=== PATIENT | female | born 1960 | race Caucasian/White ===

== ENCOUNTER 2017-03-22 14:28 | Outpatient (CLI) | payer BC ==
--- NOTE | 2017-03-22 15:27 | RAD ---
PA AND LATERAL CHEST: Indication: Granulomatous disorder. Comparison: 08-11-04 FINDINGS: Scattered calcified granuloma is stable. No acute airspace opacities, pleural effusion or pneumothor ax is evident. Compression abnormality of T12 is similar. IMPRESSION: No acute cardiopulmonary abnormality. POS: [facility]
--- NOTE | 2017-03-22 18:27 | ULT ---
THYROID ULTRASOUND 03/22/17 COMPARISON: 11/18/09 HISTORY: Thyroid goiter, re-evaluate thyroid nodule seen on prior imaging. TECHNIQUE: Multiplanar mccauley scale sonographic imaging of the thyroid gland obtained. FINDINGS: Thyroid isthmus measures 2 mm in AP dimension. Right lobe of the thyroid gland measures 4.0 x 1.6 x 1.6 cm and left lobe measures 3.7 x 1.2 x 1.4 cm. There is a dominant heterogeneously hypoechoic solid nodule within the mid portion of the right lobe of the thyroid gland measuring 1.8 x 1.0 x 1.1 cm. This lesion has grown since the prior study at [facility] time it measured 1.3 x 0.8 x 1.1 cm. There are two subcentimeter nodules within the left lobe of the thyroid gland, one in the mid pole m easuring 5 x 4 x 4 mm and one within the inferior aspect of the left lobe measuring 8 x 6 x 6 mm. Th e two left thyroid nodules are heterogeneously hypoechoic/solid. The prior exam demonstrated a large primarily cystic lesion within the mid and lower aspect of the left thyroid gland, essentially reso lved. IMPRESSION: Since the prior study performed 7 years ago, there has been enlargement of the dominant heterogeneou sly hypoechoic solid nodule within the mid portion of the right lobe. Given its sonographic appearan ce and interval growth, fine needle aspiration is suggested. The other small nodules within the thyr oid gland would be better assessed with a followup ultrasound in six months. Code T POS: [facility]
== END 2017-03-22 14:29 | disposition home or self-care (01) ==
LOC: ULT 14:28
PROVIDERS: ATTEND Internal Medicine
DX: E04.2 Nontoxic multinodular goiter (principal); L92.9 Granulomatous disorder of the skin and subcutaneous tissue, unspecified
CPT/HCPCS: 71020; 76536

== ENCOUNTER 2017-09-13 14:36 | Outpatient (CLI) | payer BC | END 2017-09-13 14:37 | disposition home or self-care (01) | LOC: BICULT 14:36 | PROVIDERS: ATTEND Otolaryngology Otolaryngic Allergy | DX: E04.1 Nontoxic single thyroid nodule (principal); E04.2 Nontoxic multinodular goiter | CPT/HCPCS: 76536 ==

== ENCOUNTER 2018-09-12 15:27 | Outpatient (CLI) | payer BC ==
--- NOTE | 2018-09-12 16:27 | ULT ---
Thyroid ultrasound COMPARISON: 09/13/2017 INDICATION: Benign neoplasm FINDINGS: Dominant, complex right thyroid lobe nodule measures approximately 2 cm, cystic and solid i n echotexture. There is a subcentimeter, solid, mildly hyperechoic 4 mm nodule of the left thyroid lobe. No significant interval change is demonstrated. IMPRESSION: Stable exam. TIRADS score of dominant right thyroid lobe nodule is 2. Findings therefore considered not suspicious for the purposes of necessitating FNA.
== END 2018-09-12 15:28 | disposition home or self-care (01) ==
LOC: BICULT 15:27
PROVIDERS: ATTEND Otolaryngology Otolaryngic Allergy
DX: D34 Benign neoplasm of thyroid gland (principal); E04.1 Nontoxic single thyroid nodule
CPT/HCPCS: 76536

== ENCOUNTER 2021-06-26 09:06 | Outpatient (CLI) | payer BC | END 2021-06-26 09:07 | disposition home or self-care (01) | LOC: BICMAMMO 09:06 | PROVIDERS: ATTEND Family Medicine | DX: Z12.31 Encounter for screening mammogram for malignant neoplasm of breast (principal); Z91.89 Other specified personal risk factors, not elsewhere classified | CPT/HCPCS: 77063; 77067 ==

== ENCOUNTER 2022-07-05 14:38 | Outpatient (CLI) | payer BC | END 2022-07-05 14:39 | disposition home or self-care (01) | LOC: BICMAMMO 14:38 | PROVIDERS: ATTEND Family Medicine | DX: Z12.31 Encounter for screening mammogram for malignant neoplasm of breast (principal); Z91.89 Other specified personal risk factors, not elsewhere classified | CPT/HCPCS: 77063; 77067 ==

== ENCOUNTER 2024-06-14 10:46 | Outpatient (CLI) | payer BC | END 2024-06-14 10:47 | disposition home or self-care (01) | LOC: RAD 10:46 | PROVIDERS: ATTEND Otolaryngology Otolaryngic Allergy | DX: I69.891 Dysphagia following other cerebrovascular disease (principal); R13.12 Dysphagia, oropharyngeal phase; R63.30 Feeding difficulties, unspecified | CPT/HCPCS: 74230 ==